=== PATIENT | female | born 1990 | race Caucasian/White ===

== ENCOUNTER 2018-02-02 01:50 | Emergency (ER) | payer SELFPAY ==
[~2018-02-02] VITALS: Ht 167.6 cm; Wt 82.0 kg
[2018-02-02 02:06] VITALS: BP 160/99; PULSE 85; RESP 20; TEMP 98.7; O2SAT 100
[2018-02-02 03:36] VITALS: O2SAT 100
--- NOTE | 2018-02-02 03:38 | PD ---
HPI Chief Complaint: Abdominal Pain Time Seen by Provider: 03:00 Travel History International Travel<30 days: No Contact w/Intl Traveler<30days: No Traveled to known affect area: No History of Present Illness HPI The patient is a 27 year old female who presents to the [facility] emergency department with a history of mid back pain and right upper quadrant abdominal pain that began at 10PM. It is coming and going. She has had nausea without vomiting associated with it. She denies having diarrhea. She last ate at 8PM- a sandwich and fruit. Her last BM was earlier today. She denies having any blood in her stool. The patient denies having any dysuria, urinary frequency, or urinary urgency. On review of systems otherwise, the patient denies having any known recent fevers, cough, congestion, neck pain, chest pain , shortness of breath, or neurologic symptoms. The patient reports that she is an [employer] and did get diagnosed with gallstones as an incidental finding a few months ago. She denies having any food intolerances prior to this. She denies having any acid reflux, dyspepsia, or prior heartburn symptoms. LMP: Irregular because of an IUD placed. [facility] Past Medical History Narrative Medical The patient's past medical history is significant for incidental gallstones. Diminished Hearing: No Musculoskeletal: Yes (FRACTURED FOOT) Immunizations Current: Yes ?: Unknown Past Surgical History Narrative Surgical The patient's past surgical history is significant for none. Social History Alcohol Use: No Tobacco Use: Yes (1 ppd) Substance Use: No Allergies-Medications (Allergen,Severity, Reaction): Coded Allergies: No Known Allergies (Verified Adverse Reaction, Unknown, 02/02/18) Reported Meds & Prescriptions Reported Meds & Active Scripts Active No Active Prescriptions or Reported Medications Review of Systems Except as stated in HPI: all other systems reviewed are Neg General / Constitutional: No: Fever Eyes: No: Visual changes HENT: No: Headaches Cardiovascular: No: Chest Pain or Discomfort Respiratory: No: Shortness of Breath Gastrointestinal: Positive: Nausea, Abdominal Pain, No: Vomiting, Diarrhea Genitourinary: No: Dysuria Musculoskeletal: No: Pain Skin: No Rash Neurologic: No: Weakness Psychiatric: No: Depression Endocrine: No: Polydipsia Hematologic/Lymphatic: No: Easy Bruising Physical Exam Narrative General: The patient is a well-developed well-nourished female in no acute distress. Head and Neck exam: Head is normocephalic atraumatic. Eyes: EOMI, pupils are equal round and reactive to light. Nose: Midline septum with pink mucous membranes Mouth: Dentition unremarkable. Moist mucus membranes. Posterior oropharynx is not erythematous. No tonsillar hypertrophy. Uvula midline. Airway patent. Neck: No palpable lymphadenopathy. No nuchal rigidity. No thyromegaly. Cardiovascular: Regular rate and rhythm without murmurs, gallops, or rubs. Lungs: Clear to auscultation bilaterally. No wheezes, rhonchi, or rales. Abdomen: Soft, with tenderness on palpation of the right upper quadrant of the abdomen. No other tenderness on palpation of the other quadrants of the abdomen appear no guarding, rebound, or rigidity. Negative Rodriguez sign. No tenderness on palpation of McBurney's point. Normal bowel sounds are audible. Extremities: No clubbing, cyanosis, or edema. 2+ pulses in all 4 extremities. No calf tenderness on palpation. Back: No spinous process tenderness to palpation. No costovertebral angle tenderness to palpation. Neurologic Exam: Grossly nonfocal. Skin Exam: No rash noted. Intact skin that is warm and dry. Data Data Last Documented VS Vital Signs Date Time Temp Pulse Resp B/P (MAP) Pulse Ox O2 Delivery O2 Flow Rate FiO2 02/02/18 03:36 100 Room Air 02/02/18 02:06 98.7 85 20 Orders Orders Complete Blood Count With Diff (02/02/18 03:14) Comprehensive Metabolic Panel (02/02/18 03:14) C-Reactive Protein (Crp) (02/02/18 03:14) Lipase (02/02/18 03:14) Urinalysis - C+S If Indicated (02/02/18 03:14) Iv Access Insert/Monitor (02/02/18 03:14) Ecg Monitoring (02/02/18 03:14) Oximetry (02/02/18 03:14) Ed Urine Pregnancytest Poc (02/02/18 03:14) Us Abdomen Gallbladder (02/02/18 04:02) Sodium Chlor 0.9% 1000 Ml Inj (Ns 1000 M (02/02/18 04:15) Ondansetron Inj (Zofran Inj) (02/02/18 04:15) Morphine Inj (Morphine Inj) (02/02/18 04:15) Labs Laboratory Tests Test 02/02/18 03:30 White Blood Count 9.9 TH/MM3 Red Blood Count 5.19 MIL/MM3 Hemoglobin 16.3 GM/DL Hematocrit 46.6 % Mean Corpuscular Volume 89.8 FL Mean Corpuscular Hemoglobin 31.5 PG Mean Corpuscular Hemoglobin Concent 35.1 % Red Cell Distribution Width 13.0 % Platelet Count 179 TH/MM3 Mean Platelet Volume 8.9 FL Neutrophils (%) (Auto) 69.1 % Lymphocytes (%) (Auto) 21.7 % Monocytes (%) (Auto) 7.5 % Eosinophils (%) (Auto) 1.3 % Basophils (%) (Auto) 0.4 % Neutrophils # (Auto) 6.8 TH/MM3 Lymphocytes # (Auto) 2.1 TH/MM3 Monocytes # (Auto) 0.7 TH/MM3 Eosinophils # (Auto) 0.1 TH/MM3 Basophils # (Auto) 0.0 TH/MM3 CBC Comment DIFF FINAL Differential Comment Urine Color YELLOW Urine Turbidity CLEAR Urine pH 6.5 Urine Specific [place] 1.024 Urine Protein NEG mg/dL Urine Glucose (UA) NEG mg/dL Urine Ketones NEG mg/dL Urine Occult Blood NEG Urine Nitrite NEG Urine Bilirubin NEG Urine Urobilinogen LESS THAN 2.0 MG/DL Urine Leukocyte Esterase LARGE Urine RBC 1 /hpf Urine WBC 6 /hpf Urine Squamous Epithelial Cells 3 /hpf Urine Bacteria OCC /hpf Microscopic Urinalysis Comment CULT NOT INDICATED Blood Urea Nitrogen 13 MG/DL Creatinine 0.75 MG/DL Random Glucose 98 MG/DL Total Protein 7.8 GM/DL Albumin 4.0 GM/DL Calcium Level 9.1 MG/DL Alkaline Phosphatase 71 U/L Aspartate Amino Transf (AST/SGOT) 23 U/L Alanine Aminotransferase (ALT/SGPT) 47 U/L Total Bilirubin 0.3 MG/DL Sodium Level 138 MEQ/L Potassium Level 4.0 MEQ/L Chloride Level 105 MEQ/L Carbon Dioxide Level 28.4 MEQ/L Anion Gap 5 MEQ/L Estimat Glomerular Filtration Rate 94 ML/MIN C-Reactive Protein LESS THAN 0.29 MG/DL Lipase 254 U/L [facility] Medical Decision Making Medical Screen Exam Complete: Yes Emergency Medical Condition: Yes Medical Record Reviewed: Yes Interpretation(s) Last Impressions Gall Bladder Ultrasound 02/02/18 0402 Signed Impressions: Service Date/Time: Friday, February 02, 2018 04:15 - CONCLUSION: 1. Cholelithiasis. However, no additional findings are present to indicate gallbladder obstruction or acute inflammation. 2. Hepatic steatosis. Jeffery Muller MD Differential Diagnosis Biliary colic, versus pancreatitis, versus pyelonephritis, versus kidney stone, versus acute cholecystitis Narrative Course During the course of the patient's emergency department visit, the patient's history, examination, and differential diagnosis were reviewed with the patient. The patient was placed on a floor installer with oximetry and frequent blood pressure monitoring. The patient had IV access obtained and blood work sent for analysis. The patient was initially provided normal saline 1 L IV fluid bolus, morphine 2 mg IV for pain, Zofran 4 mg IV for nausea The patient's laboratory studies were reviewed and remarkable for a white count of 9.9, hemoglobin 16.3, platelets 179 with a normal differential. CMP is within normal limits, lipase 254, C-reactive protein less than 0.29, urinalysis shows large leukocyte esterase 1 RBC, 6 WBCs, 3 squamous epithelial cells, occasional bacteria, culture not indicated. Radiology studies were reviewed and remarkable for an ultrasound of the gallbladder that reveals cholelithiasis, however no additional findings are present to indicate gallbladder obstruction or acute inflammation. Hepatic steatosis is noted. The patient is resting comfortably and feels better, is alert and in no distress. The patient's results and examination findings were discussed with the patient. The repeat examination is unremarkable and benign. The history, exam, diagnostic testing, and current condition do not suggest any significant pathology to warrant further testing, continued ED treatment, admission, or surgical evaluation at this point. The vital signs have been stable. The patient does not have uncontrollable pain, intractable vomiting, or other significant symptoms. The patient's condition is stable and appropriate for discharge. The patient will pursue further outpatient evaluation with a primary care physician or other designated or consulting physician as indicated in the discharge instructions. The patient expressed understanding and was agreeable with this plan. Diagnosis Primary Impression: Abdominal pain Qualified Codes: R10.11 - Right upper quadrant pain Additional Impression: Biliary colic Referrals: Osvaldo Amador MD call for appointment General Surgeon call for appointment Patient Instructions: Biliary Colic (ED), Gallstones (ED), General Instructions Additional Instructions: Avoid fatty foods. Med/Other Pt SpecificInfo: No Meds Exist/No RX given Scripts No Active Prescriptions or Reported Meds Disposition: 01 DISCHARGE HOME Condition: Shira Mendoza MD Feb 02, 2018 03:38
[2018-02-02 03:49] LABS: HEMATOCRIT 46.6 % (35.0-46.0); HEMOGLOBIN 16.3 GM/DL (11.6-15.3); MEAN CELL VOLUME 89.8 FL (80.0-100.0); MEAN CORPUSCULAR HEMOGLOBIN 31.5 PG (27.0-34.0); MEAN CORPUSCULAR HGB CONC 35.1 % (32.0-36.0); RED BLOOD COUNT 5.19 MIL/MM3 (4.00-5.30); WHITE BLOOD COUNT 9.9 TH/MM3 (4.0-11.0)
[2018-02-02 03:50] LABS: AUTOMATED NEUTROPHIL # 6.8 TH/MM3 (1.8-7.7); BASOPHIL % 0.4 % (0.0-2.0); EOSINOPHIL # 0.1 TH/MM3 (0-0.4); EOSINOPHIL % 1.3 % (0.0-4.0); LYMPH % 21.7 % (9.0-44.0); LYMPHOCYTE # 2.1 TH/MM3 (1.0-4.8); MEAN PLATELET VOLUME 8.9 FL (7.0-11.0); MONO % 7.5 % (0.0-8.0); MONOCYTE # 0.7 TH/MM3 (0-0.9); NEUT % 69.1 % (16.0-70.0); PLATELET COUNT 179 TH/MM3 (150-450)
[2018-02-02 03:55] LABS: BACTERIA, URINE OCC /hpf; BILIRUBIN, URINE NEG (NEG); BLOOD, URINE NEG (NEG); GLUCOSE,URINE NEG (NEG); KETONE, URINE NEG (NEG); NITRITE,URINE NEG (NEG); PH, URINE 6.5 (5.0-8.5); SQUAMOUS EPITHELIAL CELL URINE 3 /hpf (0-5); URINE COLOR YELLOW (YELLW/STRAW); URINE LEUKOCYTE ESTERASE LARGE (NEG)
[2018-02-02 04:07] LABS: ALT (GPT) 47 U/L (10-53); AST (GOT) 23 U/L (15-37); BICARBONATE 28.4 MEQ/L (21.0-32.0); BLOOD UREA NITROGEN 13 MG/DL (7-18); CALCIUM 9.1 MG/DL (8.5-10.1); CHLORIDE 105 MEQ/L (98-107); CREATININE 0.75 MG/DL (0.50-1.00); GLOMERULAR FILTRATION RATE 94 ML/MIN (>89); GLUCOSE,RANDOM 98 MG/DL (74-106); SODIUM (NA) 138 MEQ/L (136-145)
[2018-02-02 04:09] LABS: ALKALINE PHOSPHATASE 71 U/L (45-117); C-REACTIVE PROTEIN LESS THAN 0.29 MG/DL (0.00-0.30); TOTAL BILIRUBIN ADULT 0.3 MG/DL (0.2-1.0); TOTAL PROTEIN 7.8 GM/DL (6.4-8.2)
[2018-02-02] MEDS ORDERED: ONDANSETRON HCL 4 MG/2 ML VIAL IV ONE (04:15)
[2018-02-02] MEDS ORDERED: SODIUM CHLOR 0.9% 1000 ML INJ 1,000 ML IV ONE (04:15)
[2018-02-02] MEDS ORDERED: MORPHINE SULFATE 2 MG/ML INJ IV PUSH ONE (04:15)
--- NOTE | 2018-02-02 05:44 | RADRPT ---
EXAM DATE/TIME: 02/02/2018 04:15 [place] COMPARISON: No previous studies available for comparison. INDICATIONS : Right upper quadrant pain. MEDICAL HISTORY : Fractured foot. SURGICAL HISTORY : Previous , 2010. ENCOUNTER: Initial ACUITY: 2 days PAIN SCORE: 9/10 LOCATION: Right upper quadrant MEASUREMENTS: LIVER: 17.6 cm length COMMON DUCT: 4 mm RIGHT KIDNEY: 13.8 x 4.6 x 5.2 cm cm FINDINGS: LIVER: Increased echotexture without focal lesion or ductal dilatation. COMMON DUCT: No intraluminal mass or stone visualized. GALLBLADDER: There are stones within the gallbladder. No gallbladder wall thickening or pericholecystic fluid is p resent. Sonographic Rodriguez's sign is negative. PANCREAS: The visualized portions are within normal limits. RIGHT KIDNEY: No evidence of hydronephrosis, stone, or mass. CONCLUSION: 1. Cholelithiasis. However, no additional findings are present to indicate gallbladder obstruction or acute inflammation. 2. Hepatic steatosis. Jeffery Muller MD on February 02, 2018 at 5:41 Board Certified Radiologist. This report was verified electronically.
== END 2018-02-02 06:58 | disposition home or self-care (01) ==
LOC: NEPC 01:50
DX: R10.11 Right upper quadrant pain (principal); K80.50 Calculus of bile duct without cholangitis or cholecystitis without obstruction; M54.9 Dorsalgia, unspecified; R11.0 Nausea; Z72.0 Tobacco use
CPT/HCPCS: 76705; 80053; 81001; 83690; 84703; 85025; 86140; 96374; 96375; 99284; J2270; J2405; J7030